=== PATIENT | female | born 2000 | race Caucasian/White ===

== ENCOUNTER → 2024-02-21 | Outpatient (CLI) | payer BC, SELFPAY ==
[2024-02-21 16:35] LABS: Basophils # (Auto) 0.1 Thou/mm3 (0.0-0.2); Basophils % (Auto) 1 % (0-2.5); Eosinophils # (Auto) 0.1 Thou/mm3 (0.0-0.5); Eosinophils % (Auto) 1 % (0-10); Hematocrit 41.2 % (36.0-46.0); Hemoglobin 13.9 g/dL (12.0-16.0); Immature Granulocytes % (Auto) 0 % (0-0); Immature Granulocytes Auto 0.04 Thou/mm3 (0.00-0.00); Lymphocytes # (Auto) 2.3 Thou/mm3 (1.0-4.8); Lymphocytes % (Auto) 26 % (10-50); Mean Corpuscular HGB Conc 33.7 g/dl (31.0-37.0); Mean Corpuscular Hemoglobin 29.2 pg (25.0-35.0); Mean Corpuscular Volume 87 fL (80-100); Monocytes # (Auto) 0.6 Thou/mm3 (0.0-0.8); Monocytes % (Auto) 7 % (0-12); Neutrophils # (Auto) 5.9 Thou/mm3 (1.8-7.7); Neutrophils % (Auto) 65 % (37-80); Nucleated Red Blood Cell % 0 /100 WBC (0); Platelet Count 305 Thou/mm3 (140-440); RDW Standard Deviation 37.2 fL (36.4-46.3); Red Blood Count 4.76 Miln/mm3 (4.00-5.20)
[2024-02-21 16:45] LABS: Magnesium 1.8 mg/dL (1.6-2.6)
[2024-02-21 17:07] LABS: Folate > 24.00 ng/mL (>5.38); Vitamin D 25 Hydroxy Total 34.7 ng/mL (7.3-40.2)
[2024-02-21 17:12] LABS: Ferritin 22 ng/mL (7.3-270.7)
[2024-02-21 21:41] LABS: Iron 68 mcg/dL (50-170)
== END | disposition home or self-care (01) ==
LOC: COPL 15:24
PROVIDERS: PCP Family Medicine; Referring Provider Chiropractor; Visit Provider Chiropractor
DX: Z13.0 Encounter for screening for diseases of the blood and blood-forming organs and certain disorders involving the immune mechanism (principal)
CPT/HCPCS: 36415; 82306; 82728; 82746; 83540; 83735; 85025

== ENCOUNTER → 2024-03-08 | Outpatient (CLI) | payer BC, SELFPAY ==
--- NOTE | 2024-03-08 10:00 | XR_ITS ---
Examination: MRI lumbar spine without contrast Date and time of exam: March 18, 2024 1045 hrs. Indications: Sharp low back pain 4 months Technique: Multiple MRI axial and sagittal sections lumbar spine. Sagittal T2-weighted images, TR 3500, TE 118 T1 weighted transverse sections, TR 688 T8.5, T2-weighted sagittal sections T1 weighted sagittal sections TR 621, TE 30 T2 axial sections, TR 4, 190, TE 84. Findings: Adequate alignment lumbar vertebral bodies No lumbar fracture Disc desiccation lower 3 lumbar levels Mild disc narrowing L5-S1 No spondylolisthesis L5-S1 10 mm extruded central disc, displacing the right and left S1 nerve roots L4-L5 5 mm central lumbar disc bulge More cephalad levels unremarkable Impression: L5-S1 7 mm extruded central disc, displacing the right and left S1 nerve roots L4-L5 5 mm central lumbar disc bulge
== END | disposition home or self-care (01) ==
PROVIDERS: PCP Family Medicine; Referring Provider Chiropractor; Visit Provider Chiropractor
DX: M51.27 Other intervertebral disc displacement, lumbosacral region (principal); M51.369 Other intervertebral disc degeneration, lumbar region without mention of lumbar back pain or lower extremity pain
CPT/HCPCS: 72148